=== PATIENT | female | born 1980 | race Caucasian/White ===

== ENCOUNTER → 2022-06-12 11:05 | Outpatient (BNVA) | payer BC, SELFPAY | PROVIDERS: Visit Provider Nurse Practitioner Women's Health | DX: R30.0 Dysuria (principal); R35.0 Frequency of micturition; F41.9 Anxiety disorder, unspecified; F32.A Depression, unspecified | CPT/HCPCS: 81000 ==

== ENCOUNTER → 2022-07-08 12:24 | Outpatient (BNVA) | payer BC, SELFPAY | PROVIDERS: Visit Provider Nurse Practitioner Women's Health | DX: R35.0 Frequency of micturition (principal); R39.89 Other symptoms and signs involving the genitourinary system | CPT/HCPCS: 81000; 87086 ==